=== PATIENT | female | born 1935 | race Caucasian/White ===

== ENCOUNTER 2017-01-04 08:26 | Inpatient (IN) | payer MEDICARE, MEDICAID ==
[~2017-01-04] VITALS: Ht 152.4 cm; Wt 61.5 kg
[2017-01-04 09:30] VITALS: Ht 152.4 cm; Wt 61.5 kg
[2017-01-04] MEDS ORDERED: FENTAnyl 50 MCG/ML VIAL ONE (09:32)
[2017-01-04] MEDS ORDERED: PROPOFOL 20 ML ONE (09:32)
[2017-01-04 09:46] VITALS: BP 150/85; PULSE 79; RESP 17
[2017-01-04] MEDS ORDERED: hydrALAzine 20 MG INJ ONE (09:47)
[2017-01-04] MEDS ORDERED: HTN MED PO (10:09)
[2017-01-04] MEDS ORDERED: ADVIL PO (10:09)
[2017-01-04] MEDS ORDERED: TRAMADOL PO (10:09)
[2017-01-04] MEDS ORDERED: DIABETES MED PO (10:09)
[2017-01-04] MEDS ORDERED: CHOLESTEROL PO (10:09)
[2017-01-04 10:31] LABS: BASOPHIL # 0.1 10^3/ul (0.0-0.1); EOSINOPHILS # 0.1 10^3/ul (0.0-0.5); HEMATOCRIT 34.8 % (37.0-47.0); HEMOGLOBIN 11.4 g/dl (12.0-16.0); LYMPHOCYTES # 1.7 10^3/ul (0.8-2.9); LYMPHOCYTES % 33.9 % (15.0-51.0); MEAN CORPUSCULAR HEMOGLOBIN 29.2 pg (29.0-33.0); MEAN CORPUSCULAR HGB CONC 32.8 g/dl (32.0-37.0); MEAN CORPUSCULAR VOLUME 89.2 fl (82.0-101.0); MEAN PLATELET VOLUME 10.7 fl (7.4-10.4); MONOCYTE # 0.4 10^3/ul (0.3-0.9); MONOCYTES % 7.1 % (0.0-11.0); NEUTROPHILS % 55.6 % (39.0-77.0); PLATELET COUNT 234 10^3/UL (140-415); RED CELL DISTRIBUTION WIDTH 13.6 % (11.5-14.5); WHITE BLOOD COUNT 5.1 10^3/ul (4.8-10.8)
[2017-01-04 10:45] LABS: INR 0.95; PROTIME 12.7 Sec (12.2-14.2)
[2017-01-04 10:46] LABS: PARTIAL THROMBOPLASTIN TIME 33.7 Sec (25.0-35.0)
[2017-01-04 10:48] LABS: CALCIUM 9.5 mg/dl (8.4-10.2); CREATININE 0.59 mg/dl (0.44-1.00); POTASSIUM 3.9 mmol/L (3.5-5.1)
--- NOTE | 2017-01-04 11:07 | OPPN ---
Date/Time of Note Date/Time of Note DATE: 01/04/17 TIME: 09:44 Operative Report Preoperative Diagnosis Change in bowel habit Loss of appetite Weight loss Postoperative Diagnosis Gastric ulcers on the antrum Lurdes Hunt tear with bleeding Operation/Procedure Performed Esophagogastroduodenoscopy and biopsy Provider: SWATI LAGOS MD Anesthesia Type: MAC Estimated blood loss: 100 - 150 ml's Transfusion Required: no Specimens Biopsy gastric ulcer Grafts/Implants: none Complications Lurdes-Hunt tear and bleeding SWATI LAGOS MD Jan 04, 2017 11:03
[2017-01-04] MEDS ORDERED: DEXTROSE 5%-0.45% NACL 1,000 ML IV SCH (11:30)
[2017-01-04 11:33] VITALS: BP 176/80; PULSE 75; RESP 18
[2017-01-04 12:12] VITALS: PULSE 78; RESP 16
[2017-01-04 12:22] VITALS: BP 138/53
[2017-01-04] MEDS: PANTOPRAZOLE 40 MG INJ IV SCH ×2 (12:50→20:18)
[2017-01-04 14:34] LABS: HEMATOCRIT 31.3 % (37.0-47.0); HEMOGLOBIN 10.3 g/dl (12.0-16.0)
--- NOTE | 2017-01-04 15:22 | HP ---
Date/Time of Note Date/Time of Note DATE: 01/04/17 TIME: 15:10 Assessment/Plan VTE Prophylaxis VTE Prophylaxis Intervention: SCD's Lines/Catheters IV Catheter Type (from Nrs): Peripheral IV Assessment/Plan Assessment/Plan This is a 81-year-old female, who was electively admitted for EGD and colonoscopy for unintentional weight loss who also noted with bleeding post EGD and for colonoscopy was canceled and was admitted for observation. 1. Lurdes Hunt tear with bleeding. -NG tube to low intermittent suction. Postop management per GI team. -We will start patient on IV fluids and monitor H&H closely and transfuse as indicated. Currently H&H stable. 2. Gastric ulcers -On PPI therapy 3. Change in bowel pattern with Loss of appetite/unintentional weight loss.Family hx of Colon cancer -Follow up With EGD biopsy findings. Screening Colonoscopy was canceled secondary to #1. Follow-up with GI recs. 4. History of diabetes. Controlled and not on any treatment. -Obtain A1c and treat accordingly 5. Hypercholesteremia. -Needs to obtain home medication and will resume as indicated. Obtain fasting lipid panel 6. Hypertension. Currently blood pressure stable -Obtain home medications and will resume as indicated. 7.Normocytic anemia,likely chronic. HH stable. With #1, will closely monitor. Plan: Continue to monitor patient overnight. We will also obtain fasting lipid panel, A1c and TSH level. Further management per GI team. Approximately 60 minutes was spent on this history and physical. Patient was seen in collaboration with Dr. Wiggins. HPI/ROS Admit Date/Time Admit Date/Time Jan 04, 2017 at 11:17 Hx of Present Illness This is a 81-year-old female with a past medical history hypertension, arthritis , chronic back pain, type 2 diabetes, uterine fibroid removal, hyperlipidemia, who was electively admitted by GI service for elective endoscopy and colonoscopy with biopsy secondary to change in bowel habit with loss of appetite and unintentional weight loss. Patient had undergone EGD and biopsy on 01/04/2017 at [facility]. However, she was noted with bleeding postprocedure and a colonoscopy was not performed and patient was admitted for observation overnight. Currently she denies any chest pain, shortness of breath, loss of consciousness, dizziness, nausea, vomiting, abdominal pain, fever or chills. Patient has an NG tube draining minimal sanguinous drainage. Labs with hemoglobin 10.3, hematocrit 31.3. Otherwise unremarkable. Vital signs within acceptable range. ROS A 12 point system was assessed and is negative other than what is mentioned in the HPI PMH/Family/Social Past Medical History see HPI Past Surgical History see HPI Social History Normal alcohol use. Nicotine abuse, quit 2 weeks ago. Denies any illicit drug use. Smoking Status: Former smoker Exam/Review of Systems Vital Signs Vitals Vital Signs Date Time Temp Pulse Resp B/P Pulse Ox O2 Delivery O2 Flow Rate FiO2 01/04/17 14:44 Nasal Cannula 2.0 01/04/17 12:22 138/53 01/04/17 12:12 97.7 78 16 97 Exam Exam General: Well developed,adequately built, not in any acute distress . HEENT: Normocephalic, Atraumatic, No laceration or hematoma; Eyes: PEERL, Conjunctiva clear, Anicteric sclera Neck: Supple without any lymphadenopathy, nontender, no JVD, no carotid bruits, trachea midline, no thyromegaly Cardiac: S1, S2 auscultated, regular rhythm and rate, no mumurs or gallop Pulmonary: Normal respiratory effort. Chest clear to auscultation bilaterally, no adventitious breath sounds GI: NG-tube to low intermittent suction, draining blood. Abdomen normal to inspection. Soft, non tender, non- distended, no masses, no rebound tenderness or guarding. Bowel sounds active on all four quadrants Genitourinary: Deferred Extremities: No cyanosis, clubbing, or edema. Pulses [2+] bilaterally. Full ROM on all four extremities. No focal weakness appreciated. Neurologic: Alert to person, place, time, and situation. Affect appropriate, intact sensation. Skin: Clean,dry, and intact. No ecchymosis, no rashes, or lesions Labs Result Diagram: 01/04/17 1413 01/04/17 1020 Medications Medications Current Medications Pantoprazole (Protonix Iv) 40 mg Q12 IV Last administered on 01/04/17t 12:50; Admin Dose 40 MG; Start 01/04/17 at 11:30 STEPH FRANK NP Jan 04, 2017 15:22
[2017-01-04] MEDS ORDERED: ACETAMINOPHEN 650 MG SUPP PR PRN (15:30)
[2017-01-04] MEDS ORDERED: NACL 0.9% 3 ML SYG IV SCH (15:30)
[2017-01-04] MEDS ORDERED: hydrALAzine 20 MG INJ IV PRN (15:30)
[2017-01-04] MEDS: SOD CHLORIDE 0.9% 1,000 ML IV SCH (16:12)
[2017-01-04] MEDS: morphine 2 MG INJ IV PRN (16:31)
[2017-01-04] MEDS: ONDANSETRON 4 MG INJ IV PRN ×2 (16:31→22:38)
[2017-01-04] MEDS: INSULIN ASPART [NOVOLOG] 3 ML PEN SC SCH ×2 (17:41→20:28)
--- NOTE | 2017-01-04 19:11 | GILP ---
DATE OF PROCEDURE: 01/04/2017 PROCEDURE PERFORMED: Esophagogastroduodenoscopy and biopsy. SURGEON: Nnamdi Mcbride MD. PREOPERATIVE DIAGNOSIS: Loss of appetite, weight loss, and change in the bowel habits. POSTOPERATIVE DIAGNOSES: 1. Two small gastric ulcers in the antrum, and biopsies were taken for histopathology. 2. Bleeding from Lurdes-Hunt tear. INDICATION: Debbie Wood is an 81-year-old female patient who had change in the bowel habit, loss of appetite and weight loss. Patient was scheduled for endoscopy and colonoscopy for further evaluation. The procedures and possible complications were well explained to the patient and the family, and consent was obtained. DESCRIPTION OF PROCEDURE: Under the influence of anesthesia, the gastroscope was carefully introduced into the esophagus. Under direct vision, it was advanced into the stomach, into the pylorus, into the duodenal bulb, and descending duodenum. FINDINGS: Esophagus: The patient had hiatal hernia and gastroesophageal reflux disease. Stomach: She had gastritis. She also had gastric ulcers in the antrum. Biopsies were taken for histopathology. Duodenum was normal. During the examination, the patient was noted to have bleeding from esophagogastric junction, probably secondary to Lurdes- Hunt tear. Because of the blood clots, complete examination could not be done. The bleeding stopped, and there was no active bleeding. Nasogastric tube was inserted, and it was connected to continuous suction. Patient was admitted to the hospital for observation. Blood was drawn for CBC, BMP and typing and cross matching. IMPRESSION: 1. Gastric ulcers and biopsies were taken for histopathology. 2. Bleeding from Lurdes-Hunt tear. 3. The patient was admitted to the hospital for observation. PLAN: 1. IV fluids. 2. Pantoprazole IV. 3. Watch hemoglobin and hematocrit. Dictated By: MD CLAUDIA Hall/yaritza/rea /Document#: [id number] CC: Nnamdi Mcbride MD;*[facility]*
[2017-01-04 19:45] VITALS: BP 124/60; RESP 19
[2017-01-05 00:22] VITALS: BP 123/56; RESP 20
[2017-01-05] MEDS: morphine 2 MG INJ IV PRN (00:25)
[2017-01-05] MEDS: ACCU-CHEK XX SCH ×2 (01:49)
[2017-01-05] MEDS: ONDANSETRON 4 MG INJ IV PRN ×2 (04:43→16:28)
[2017-01-05] MEDS: SOD CHLORIDE 0.9% 1,000 ML IV SCH ×2 (04:44→16:59)
[2017-01-05 05:33] LABS: ALBUMIN 2.6 g/dl (3.3-4.9); ALBUMIN/GLOBULIN RATIO 1.08; BILIRUBIN,INDIRECT 0.2 mg/dl (0-1.1); BILIRUBIN,TOTAL 0.2 mg/dl (0.2-1.3); CALCIUM 8.4 mg/dl (8.4-10.2); CHOL/HDL RATIO 3.6 RATIO; CREATININE 0.83 mg/dl (0.44-1.00); PHOSPHORUS 4.1 mg/dl (2.5-4.9); POTASSIUM 4.3 mmol/L (3.5-5.1)
--- NOTE | 2017-01-05 05:39 | CONS ---
DATE OF ADMISSION: DATE OF CONSULTATION: 12/30/2016 I think you very much for this kind referral. HISTORY OF PRESENT ILLNESS: Ms. Debbie Bautista is an 81-year-old female patient who has been referred to me for further evaluation of change in the bowel habit with constipation. Patient also complains of loss of appetite and weight loss. There is no past medical history of colon neoplasm. She never had screening colonoscopy. Patient denies any upper abdominal pain. No history of peptic ulcer disease. She has been taking Advil and other pain medications for arthritis. No history of gallstones or liver disease. She is hypertensive. She has diabetes. No heart disease or lung problem. No kidney disease. She has got hyperlipidemia. SOCIAL HISTORY: Nonsmoker. No alcohol abuse. FAMILY HISTORY: Patient's mother had stomach cancer. ALLERGIES: NO HISTORY OF DRUG ALLERGIES. MEDICATION: She takes medicine for high blood pressure, diabetes, cholesterol and arthritis. She does not remember the names. PHYSICAL EXAMINATION: VITAL SIGNS: She is 5 feet tall, and she weighs 135 pounds. BMI 26. HEART: Normal heart sounds. LUNGS: Clear. ABDOMEN: Soft. No masses. Normal bowel sounds. NEUROLOGIC: Normal neurological exam. IMPRESSION: 1. Change in the bowel habits. 2. Constipation. 3. Patient never had screening colonoscopy. 4. Loss of appetite and weight loss. 5. Patient is on Advil and multiple pain medications for arthritis. 6. Family history of gastric cancer, 7.Hypertension D.M. Hyperlipidemia PLAN: Colonoscopy and upper endoscopy for further evaluation. Because of the patient's age, she will need monitored anesthesia care. The procedures and possible complications were well explained to the patient and the family. They understand and consent to the procedures. Her BMI is 26. Blood pressure 128/78. She will be followed by the Primary MD for the BMI and blood pressure management. I thank you once again. Patient Name: DEBBIE BAUTISTA Dictated By: MD CLAUDIA Hall/yaritza/rea /Document#: [id number] CC: Nnamdi Mcbride MD;*End[facility]* MTDD
[2017-01-05 05:46] LABS: ABNORMAL IP MESSAGE 1; BASOPHILS % 0.2 % (0.0-2.0); HEMATOCRIT 21.1 % (37.0-47.0); LYMPHOCYTES # 2.1 10^3/ul (0.8-2.9); LYMPHOCYTES % 26.4 % (15.0-51.0); MEAN CORPUSCULAR HEMOGLOBIN 30.1 pg (29.0-33.0); MEAN CORPUSCULAR HGB CONC 32.7 g/dl (32.0-37.0); MEAN CORPUSCULAR VOLUME 92.1 fl (82.0-101.0); MEAN PLATELET VOLUME 11.5 fl (7.4-10.4); MONOCYTE # 0.6 10^3/ul (0.3-0.9); MONOCYTES % 7.2 % (0.0-11.0); NEUTROPHILS % 65.8 % (39.0-77.0); PLATELET COUNT 239 10^3/UL (140-415); RED BLOOD COUNT 2.29 10^6/ul (4.20-5.40); RED CELL DISTRIBUTION WIDTH 13.9 % (11.5-14.5); WHITE BLOOD COUNT 8.1 10^3/ul (4.8-10.8)
[2017-01-05 06:00] LABS: HEMOGLOBIN 6.9 g/dl (12.0-16.0); POSITIVE DIFF @See below
[2017-01-05 06:03] LABS: THYROID STIMULATING HORMONE 0.405 MIU/L (0.465-4.680)
[2017-01-05 06:11] VITALS: BP 119/57; PULSE 98; RESP 18
[2017-01-05] MEDS ORDERED: ACETAMINOPHEN 325 MG TAB ONE (07:56)
[2017-01-05] MEDS: ACETAMINOPHEN 325 MG TAB PO PRN (07:59)
[2017-01-05 08:04] VITALS: BP 123/58; RESP 20
[2017-01-05] MEDS: PANTOPRAZOLE 40 MG INJ IV SCH ×2 (08:27→21:43)
[2017-01-05] MEDS: INSULIN ASPART [NOVOLOG] 3 ML PEN SC SCH ×4 (08:29→21:00)
--- NOTE | 2017-01-05 12:21 | PN ---
Date/Time of Note Date/Time of Note DATE: 01/05/17 TIME: 12:17 Assessment/Plan VTE Prophylaxis VTE Prophylaxis Intervention: SCD's Lines/Catheters IV [facility]from [facility]): Peripheral IV Assessment/Plan Chief Complaint/Hosp Course This is a 81-year-old female, who was electively admitted for EGD and colonoscopy for unintentional weight loss who also noted with bleeding post EGD and for colonoscopy was canceled and was admitted for observation. 1. Acute GI bleed with Lurdes Hunt tear. Today HH dropped to 6.9/21.1 -2 units PRBC has been odrered by GI team -Continue IV fluids and monitor H&H closely and transfuse as indicated. -Diet per surgery 2. Gastric ulcers -On PPI therapy 3. Loss of appetite/unintentional weight loss. -F/u EGD biopsy findings. Screening colonoscopy was canceled secondary to bleed. Follow-up with GI recs. 4. History of diabetes. Controlled and not on any treatment.A1C stable. -Monitor 5. Hypercholesteremia.Lipid panel with subnormal lipid levels. -No need for statin therapy at this time. 6. Hypertension. Currently blood pressure stable -Monitor. 7.Acute blood loss anemia on chronic anemia requiring transfusion 2/2 #1. -Monitor HH closely Plan: Continue to monitor patient . Further management per GI team. Obtain T4/ T3 level. Patient was seen in collaboration with Dr. Wiggins. Problems: Subjective 24 Hr Interval Summary Free Text/Dictation Ngtube out. Patient had bloody stool today. on clear diet. Exam/Review of Systems Vital Signs Vitals Vital Signs Date Time Temp Pulse Resp B/P Pulse Ox O2 Delivery O2 Flow Rate FiO2 01/05/17 08:04 100.6 112 20 123/58 95 01/05/17 06:11 Room Air 01/04/17 14:44 2.0 Intake and Output 01/04/17 01/04/17 01/05/17 15:00 23:00 07:00 Intake Total 520 ml 1220 ml Output Total 300 ml 50 ml Balance 220 ml 1170 ml Exam General: Well developed,adequately built, not in any acute distress . HEENT: Normocephalic, Atraumatic, No laceration or hematoma; Eyes: PEERL, Conjunctiva clear, Anicteric sclera Neck: Supple without any lymphadenopathy, nontender, no JVD, no carotid bruits, trachea midline, no thyromegaly Cardiac: S1, S2 auscultated, regular rhythm and rate, no mumurs or gallop Pulmonary: Normal respiratory effort. Chest clear to auscultation bilaterally, no adventitious breath sounds GI: Abdomen normal to inspection. Soft, non tender, non- distended, no masses, no rebound tenderness or guarding. Bowel sounds active on all four quadrants Genitourinary: Deferred Extremities: No cyanosis, clubbing, or edema. Pulses [2+] bilaterally. Full ROM on all four extremities. No focal weakness appreciated. Neurologic: Alert to person, place, time, and situation. Affect appropriate, intact sensation. Skin: Clean,dry, and intact. No ecchymosis, no rashes, or lesions Results Result Diagram: 01/05/17 0501 01/05/17 0501 Results 24 hrs Laboratory Tests Test 01/04/17 14:13 01/04/17 17:30 01/04/17 20:26 01/05/17 05:01 Hemoglobin 10.3 L 6.9 #*L Hematocrit 31.3 L 21.1 #L Bedside Glucose 166 168 White Blood Count 8.1 # Red Blood Count 2.29 #L Mean Corpuscular Volume 92.1 Mean Corpuscular Hemoglobin 30.1 Mean Corpuscular Hemoglobin Concent 32.7 Red Cell Distribution Width 13.9 Platelet Count 239 Mean Platelet Volume 11.5 H Neutrophils % 65.8 Lymphocytes % 26.4 Monocytes % 7.2 Eosinophils % 0.0 Basophils % 0.2 Nucleated Red Blood Cells % 0.0 Neutrophils # (Manual) 5.3 Lymphocytes # 2.1 Monocytes # 0.6 Eosinophils # 0.0 Basophils # 0.0 Nucleated Red Blood Cells # 0.0 Sodium Level 140 Potassium Level 4.3 Chloride Level 108 Carbon Dioxide Level 25 Anion Gap 11 Blood Urea Nitrogen 39 #H Creatinine 0.83 Glucose Level 181 Hemoglobin A1c 5.7 Calcium Level 8.4 Phosphorus Level 4.1 Total Bilirubin 0.2 Direct Bilirubin 0.00 Indirect Bilirubin 0.2 Aspartate Amino Transf (AST/SGOT) 15 Alanine Aminotransferase (ALT/SGPT) 20 Alkaline Phosphatase 76 Total Protein 5.0 L Albumin 2.6 L Globulin 2.40 Albumin/Globulin Ratio 1.08 Triglycerides Level 134 Cholesterol Level 81 L LDL Cholesterol, Calculated 32 HDL Cholesterol 22 L Cholesterol/HDL Ratio 3.6 Thyroid Stimulating Hormone (TSH) 0.405 L Test 01/05/17 08:17 Bedside Glucose 154 Medications Medications Current Medications Pantoprazole 40 mg 40 mg Q12 IV Last administered on 01/05/17 08:27; Admin Dose 40 MG; Start 01/04/17 at 11:30 Sodium Chloride (NS) 1,000 ml @ 75 mls/hr [id number] IV Last administered on 01/05 04:44; Admin Dose 75 MLS/HR; Start 01/04/17 at 15:30 Acetaminophen (Tylenol Supp) 650 mg Q6H PRN [place] PAIN LEVEL 1-3 OR FEVER; Start 01/04/17 at 15:30 Morphine Sulfate (morphine) 2 mg Q4H PRN IV SEVERE PAIN LEVEL 7-10 Last administered on 01/05/17 00:25; Admin Dose 2 MG; Start 01/04/17 at 15:30 Diagnostic Test (Pha) (Accu-Chek) 1 ea 02 XX ; Start 01/05/17 at 02:00 Hydralazine HCl (Apresoline) 10 mg Q6H PRN IV SBP>160; Start 01/04/17 at 15:30 Diagnostic Test (Pha) (Accu-Chek) 1 ea 02 XX ; Start 01/05/17 at 02:00 Ondansetron HCl (Zofran Inj) 4 mg Q4H PRN IV NAUSEA AND/OR VOMITING Last administered on 01/05/17 04:43; Admin Dose 4 MG; Start 01/05/17 at 02:30 Acetaminophen (Tylenol Tab) 650 mg Q4H PRN PO PAIN AND OR ELEVATED TEMP Last administered on 01/05/17 07:59; Admin Dose 650 MG; Start 01/05/17 at 07:57 STEPH FRANK NP Jan 05, 2017 12:21
--- NOTE | 2017-01-05 13:51 | PN ---
DATE: 01/04/2017 SUBJECTIVE DATA: Ms. Debbie Wood upper endoscopy and she started having upper gastrointestinal tract bleeding secondary to Lurdes Hunt tear. The patient was hospitalized for observation. The patient was given IV fluids and she was getting pantoprazole IV. The patient dropped her hematocrit to 6.9. She does not have any abdominal pain. She has nausea. She is not vomiting blood. She had melena. The patient also had gastric ulcers on upper endoscopy. PHYSICAL EXAMINATION: VITAL SIGNS: Stable. ABDOMEN: Soft, not distended. Normal bowel sounds. LABORATORY AND DIAGNOSTIC DATA: Hemoglobin 6.9, hematocrit 21.1. PLAN: Continue IV Protonix. Transfuse 2 units of packed cells. Watch vital signs, hemoglobin and hematocrit. If the patient continues to bleed, will consider repeat endoscopy for further evaluation and possible electrocoagulation or clipping to stop the bleeding. Dictated By: MD CLAUDIA Hall/yaritza/erika /Document#: [id number]
[2017-01-05 16:45] LABS: HEMATOCRIT 29.1 % (37.0-47.0); HEMOGLOBIN 9.6 g/dl (12.0-16.0)
[2017-01-05] MEDS ORDERED: GLUCAGON 1 MG INJ IM PRN (18:00)
[2017-01-05] MEDS ORDERED: DEXTROSE 50% 50 ML SYRINGE IV PRN ×2 (18:00)
[2017-01-05] MEDS ORDERED: GLUCOSE GEL 15 GRAM TUBE BUCCAL PRN (18:00)
[2017-01-05] MEDS ORDERED: GLUCOSE GEL 15 GRAM TUBE PO PRN ×2 (18:00)
[2017-01-05 19:30] VITALS: BP 127/61; RESP 18
[2017-01-05 20:33] LABS: HEMATOCRIT 29.8 % (37.0-47.0)
[2017-01-06 02:00] VITALS: BP 120/72; RESP 20
[2017-01-06] MEDS: ACCU-CHEK XX SCH ×2 (02:00)
[2017-01-06] MEDS: ACETAMINOPHEN 325 MG TAB PO PRN (04:50)
[2017-01-06] MEDS: SOD CHLORIDE 0.9% 1,000 ML IV SCH ×2 (04:56→20:50)
[2017-01-06 05:15] LABS: BASOPHILS % 0.6 % (0.0-2.0); EOSINOPHILS # 0.1 10^3/ul (0.0-0.5); EOSINOPHILS % 0.7 % (0.0-7.0); HEMATOCRIT 27.9 % (37.0-47.0); HEMOGLOBIN 9.1 g/dl (12.0-16.0); LYMPHOCYTES % 29.3 % (15.0-51.0); MEAN CORPUSCULAR HEMOGLOBIN 28.6 pg (29.0-33.0); MEAN CORPUSCULAR HGB CONC 32.6 g/dl (32.0-37.0); MEAN CORPUSCULAR VOLUME 87.7 fl (82.0-101.0); MEAN PLATELET VOLUME 11.2 fl (7.4-10.4); MONOCYTE # 0.5 10^3/ul (0.3-0.9); MONOCYTES % 7.1 % (0.0-11.0); NEUTROPHILS % 61.7 % (39.0-77.0); PLATELET COUNT 175 10^3/UL (140-415); RED BLOOD COUNT 3.18 10^6/ul (4.20-5.40); WHITE BLOOD COUNT 6.8 10^3/ul (4.8-10.8)
[2017-01-06 05:36] LABS: CALCIUM 8.7 mg/dl (8.4-10.2); CREATININE 0.63 mg/dl (0.44-1.00); POTASSIUM 3.6 mmol/L (3.5-5.1)
[2017-01-06 05:49] LABS: FREE T3 1.98 pg/ml (2.77-5.27)
[2017-01-06 06:02] LABS: TRIIODOTHYRONINE 0.58 ng/ml (0.97-1.69)
[2017-01-06 08:27] VITALS: BP 155/74; RESP 16
[2017-01-06] MEDS: INSULIN ASPART [NOVOLOG] 3 ML PEN SC SCH ×4 (08:45→20:43)
[2017-01-06] MEDS: PANTOPRAZOLE 40 MG INJ IV SCH ×2 (09:36→20:42)
--- NOTE | 2017-01-06 11:51 | PN ---
Date/Time of Note Date/Time of Note DATE: 01/06/17 TIME: 11:43 Assessment/Plan VTE Prophylaxis VTE Prophylaxis Intervention: SCD's Lines/Catheters IV [facility] Type (from [facility]): Peripheral IV Urinary Cath still in place: No Assessment/Plan Chief Complaint/Hosp Course This is a 81-year-old female, who was electively admitted for EGD and colonoscopy for unintentional weight loss who also noted with bleeding post EGD and for colonoscopy was canceled and was admitted for observation. 1. Acute GI bleed with Lurdes Hunt tear.HH stable today.Stable -Status post 2 units PRBC -Continue IV fluids and monitor H&H closely and transfuse as indicated. -Diet per surgery 2. Gastric ulcers with H-Pylori infection -Start clarithromycin-based triple therapyX 14DAYS-Patient already on PPI. -Defer GI for further recs. 3. Loss of appetite/unintentional weight loss. -EGD Pathology with no evidence of intestinal metaplasia, dysplasia or malignancy. -Screening colonoscopy was canceled secondary to bleed. Follow-up with GI recs. 4. History of diabetes. Controlled and not on any treatment.A1C stable. -Monitor 5. Hypercholesteremia.Lipid panel with subnormal lipid levels. -No need for statin therapy at this time. 6. Hypertension. Currently blood pressure stable -Monitor. 7.Abnormal thyroid function.Asymptomatic. Recommend outpatient repeat labs in 2 weeks 8.Acute blood loss anemia on chronic anemia requiring transfusion 2/2 #1. HH stable now. -Obtain iron panel and treat accordingly. Plan: Overall improving well. No further bleed. Continue to monitor patient . DC planning when cleared by GI. Patient was seen in collaboration with Dr. Wiggins. Problems: Subjective 24 Hr Interval Summary Free Text/Dictation No further bleeding. Started on diet. Exam/Review of Systems Vital Signs Vitals Vital Signs Date Time Temp Pulse Resp B/P Pulse Ox O2 Delivery O2 Flow Rate FiO2 01/06/17 08:27 97.3 97 16 155/74 94 01/05/17 06:11 Room Air 01/04/17 14:44 2.0 Intake and Output 01/05/17 01/05/17 01/06/17 15:00 23:00 07:00 Intake Total 1690 ml 950 ml Balance 1690 ml 950 ml Exam General: Well developed,adequately built, not in any acute distress . HEENT: Normocephalic, Atraumatic, No laceration or hematoma; Eyes: PEERL, Conjunctiva clear, Anicteric sclera Neck: Supple without any lymphadenopathy, nontender, no JVD, no carotid bruits, trachea midline, no thyromegaly Cardiac: S1, S2 auscultated, regular rhythm and rate, no mumurs or gallop Pulmonary: Normal respiratory effort. Chest clear to auscultation bilaterally, no adventitious breath sounds GI: Abdomen normal to inspection. Soft, non tender, non- distended, no masses, no rebound tenderness or guarding. Bowel sounds active on all four quadrants Genitourinary: Deferred Extremities: No cyanosis, clubbing, or edema. Pulses [2+] bilaterally. Full ROM on all four extremities. No focal weakness appreciated. Neurologic: Alert to person, place, time, and situation. Affect appropriate, intact sensation. Skin: Clean,dry, and intact. No ecchymosis, no rashes, or lesions Results Result Diagram: 01/06/17 0437 01/06/17 0437 Results 24 hrs Laboratory Tests Test 01/05/17 12:37 01/05/17 16:13 01/05/17 16:50 01/05/17 20:19 Bedside Glucose 145 171 Hemoglobin 9.6 #L 10.0 L Hematocrit 29.1 #L 29.8 L Test 01/05/17 21:45 01/06/17 04:37 01/06/17 05:32 01/06/17 08:42 Bedside Glucose 124 123 White Blood Count 6.8 Red Blood Count 3.18 #L Hemoglobin 9.1 L Hematocrit 27.9 L Mean Corpuscular Volume 87.7 Mean Corpuscular Hemoglobin 28.6 L Mean Corpuscular Hemoglobin Concent 32.6 Red Cell Distribution Width 16.0 H Platelet Count 175 # Mean Platelet Volume 11.2 H Neutrophils % 61.7 Lymphocytes % 29.3 Monocytes % 7.1 Eosinophils % 0.7 Basophils % 0.6 Nucleated Red Blood Cells % 0.0 Neutrophils # (Manual) 4.2 Lymphocytes # 2.0 Monocytes # 0.5 Eosinophils # 0.1 Basophils # 0.0 Nucleated Red Blood Cells # 0.0 Sodium Level 145 H Potassium Level 3.6 Chloride Level 114 H Carbon Dioxide Level 29 Anion Gap 6 L Blood Urea Nitrogen 34 H Creatinine 0.63 Glucose Level 115 # Calcium Level 8.7 Free Thyroxine 1.09 Free Triiodothyronine (T3) pg/mL 1.98 L Total Triiodothyronine 0.58 L Lab Scanned Report BLOOD TRANSFUSION Medications Medications Current Medications Pantoprazole 40 mg 40 mg Q12 IV Last administered on 01/06/17 09:36; Admin Dose 40 MG; Start 01/04/17 at 11:30 Sodium Chloride (NS) 1,000 ml @ 75 mls/hr [id number] IV Last administered on 01/06 04:56; Admin Dose 75 MLS/HR; Start 01/04/17 at 15:30 Acetaminophen (Tylenol Supp) 650 mg Q6H PRN [place] PAIN LEVEL 1-3 OR FEVER; Start 01/04/17 at 15:30 Morphine Sulfate (morphine) 2 mg Q4H PRN IV SEVERE PAIN LEVEL 7-10 Last administered on 01/05/17 00:25; Admin Dose 2 MG; Start 01/04/17 at 15:30 Diagnostic Test (Pha) (Accu-Chek) 1 ea 02 XX ; Start 01/05/17 at 02:00 Hydralazine HCl (Apresoline) 10 mg Q6H PRN IV SBP>160; Start 01/04/17 at 15:30 Diagnostic Test (Pha) (Accu-Chek) 1 ea 02 XX ; Start 01/05/17 at 02:00 Ondansetron HCl (Zofran Inj) 4 mg Q4H PRN IV NAUSEA AND/OR VOMITING Last administered on 01/05/17 16:28; Admin Dose 4 MG; Start 01/05/17 at 02:30 Acetaminophen (Tylenol Tab) 650 mg Q4H PRN PO PAIN AND OR ELEVATED TEMP Last administered on 01/06/17 04:50; Admin Dose 650 MG; Start 01/05/17 at 07:57 Miscellaneous Information 1 ea NOTE XX ; Start 01/05/17 at 18:00 Glucose (Glutose) 15 gm Q15M PRN PO DECREASED GLUCOSE; Start 01/05/17 at 18:00 Glucose (Glutose) 22.5 gm Q15M PRN PO DECREASED GLUCOSE; Start 01/05/17 at 18: 00 Dextrose (D50w Syringe) 25 ml Q15M PRN IV DECREASED GLUCOSE; Start 01/05/17 at 18:00 Dextrose (D50w Syringe) 50 ml Q15M PRN IV DECREASED GLUCOSE; Start 01/05/17 at 18:00 Glucagon (Glucagen) 1 mg Q15M PRN IM DECREASED GLUCOSE; Start 01/05/17 at 18:00 Glucose (Glutose) 15 gm Q15M PRN BUCCAL DECREASED GLUCOSE; Start 01/05/17 at 18 :00 STEPH FRANK NP Jan 06, 2017 11:51
[2017-01-06] MEDS: HYDROCODONE/APAP (5/325) TAB PO PRN ×2 (13:16→23:36)
--- NOTE | 2017-01-06 14:43 | PN ---
DATE: 01/06/2017 SUBJECTIVE DATA: The patient is feeling better today. No abdominal pain. No nausea or vomiting. No melena. OBJECTIVE DATA: ABDOMEN: Soft, not distended. No masses. No focal tenderness. Normal bowel sounds. LABORATORY AND DIAGNOSTIC DATA: Hemoglobin has dropped a little bit because of hydration. Patient has got elevated BUN. PLAN: Advance diet to soft diet. Continue Protonix. Watch hemoglobin and hematocrit. Patient will be discharged home tomorrow if the vital signs and hematocrit are stable and if the patient is asymptomatic. Dictated By: MD CLAUDIA Hall/yaritza/neptali /Document#: [id number]
[2017-01-06 15:48] VITALS: BP 138/76; RESP 18
[2017-01-06] MEDS ORDERED: PANTOPRAZOLE (EC) 40 MG TAB PO SCH (18:00)
[2017-01-06 19:25] LABS: HEMATOCRIT 26.5 % (37.0-47.0); HEMOGLOBIN 8.9 g/dl (12.0-16.0)
[2017-01-06 20:07] VITALS: BP 143/64; RESP 19
[2017-01-06] MEDS: AMOXICILLIN 500 MG CAP PO SCH (20:42)
[2017-01-06 20:43] VITALS: BP 159/70; RESP 20
[2017-01-06] MEDS: CLARITHROMYCIN 500 MG TAB PO SCH (20:43)
[2017-01-07] MEDS: ACCU-CHEK XX SCH ×2 (02:00)
[2017-01-07 05:25] LABS: HEMATOCRIT 24.7 % (37.0-47.0); HEMOGLOBIN 8.1 g/dl (12.0-16.0)
[2017-01-07 05:50] LABS: IRON 36 ug/dl (35-150)
[2017-01-07 06:00] LABS: TOTAL IRON BINDING CAPACITY 246 ug/dl (241-421)
[2017-01-07] MEDS: HYDROCODONE/APAP (5/325) TAB PO PRN (07:40)
[2017-01-07] MEDS: INSULIN ASPART [NOVOLOG] 3 ML PEN SC SCH ×2 (07:50→13:00)
[2017-01-07 08:15] VITALS: BP 175/77; RESP 18
[2017-01-07] MEDS: PANTOPRAZOLE 40 MG INJ IV SCH (08:57)
[2017-01-07] MEDS: AMOXICILLIN 500 MG CAP PO SCH (08:57)
[2017-01-07] MEDS: CLARITHROMYCIN 500 MG TAB PO SCH (08:57)
[2017-01-07] MEDS: SOD CHLORIDE 0.9% 1,000 ML IV SCH (10:10)
--- NOTE | 2017-01-07 10:49 | PDOCDIS ---
Discharge Instructions CONDITION Patient Condition: Stable HOME CARE INSTRUCTIONS: Diet Instructions: Regular FOLLOW UP/APPOINTMENTS Follow-up Plan 1.Follow up with primary care physician in 1 week If you don't have one please let someone know, we can give you resources that may help you pick one. You may also call your insurance company to assign one to you. Review your medication list with your nurse before leaving and if you need new prescriptions please let your nurse know. I may have made changes to your home medications or given you new prescriptions, please let your primary doctor know as well. Stay compliant with your medications and report any side effects to your PCP or pharmacist. Return to the ER if you have any concerns and cannot reach your doctors or call your insurance company, they usually have a nurse that can help you. 2. Call 911 or go to the nearest emergency room if experiencing loss of consciousness, dizziness, chest pain, shortness of breath, vomiting/abdominal pain, speech difficulties, motor weakness or any unusual symptoms. OTHER ORDERS: Other Orders: Follow-up with in clinic in 2weeks STEPH FRANK NP Jan 07, 2017 10:49
[2017-01-07] MEDS ORDERED: CLAR500T39 PO (10:52)
[2017-01-07] MEDS ORDERED: PANT40TA3 PO (10:52)
[2017-01-07] MEDS ORDERED: AMO500 PO (10:52)
--- NOTE | 2017-01-07 15:23 | DS ---
Date/Time of Note Date/Time of Note DATE: 01/07/17 TIME: 15:18 Discharge Summary Admission/Discharge Info Admit Date/Time Jan 05, 2017 at 12:21 Discharge Date/Time Discharge Diagnosis 1. Acute GI bleed with Lurdes Hunt tear. Able 2. Gastric ulcers with H-Pylori infection 3. Loss of appetite/unintentional weight loss.EGD Pathology with no evidence of intestinal metaplasia, dysplasia or malignancy. Recommend outpatient screening colonoscopy. 4. History of diabetes. 5. Hypercholesteremia. 6. Hypertension. 7.Abnormal thyroid function.Asymptomatic.Needs outpt f/u 8.Acute blood loss anemia on chronic anemia requiring transfusion 05/28 # 1.Resolved. Patient Condition: Stable Consults ,GI Procedures 01/04/2017. Esophagogastroduodenoscopy and biopsy. 1. Two small gastric ulcers in the antrum, and biopsies were taken for histopathology. 2. Bleeding from Lurdes-Hunt tear. Hospital Course TT is a 81-year-old female with a past medical history of type 2 diabetes, hypercholesteremia, hypertension, family history of gastric ulcers, who was electively brought to [facility] by GI service for screening EGD and colonoscopy secondary to loss of appetite and unintentional weight loss. Apparently, patient was found with Acute GI bleed with Lurdes Hunt tear after EGD and therefore colonoscopy was canceled and patient was admitted for further evaluation. H&H was monitored closely. Patient continued to have bleeding from NG tube. She was noted with a hemoglobin of 6.9, hematocrit 21.1. Patient was transfused with 2 units packed red blood cells. Her hemoglobin remained stable thereafter. There was no further bleeding from NG tube. NG tube was then discontinued and patient was started on a clear diet and was advanced. Patient is closely monitored by GI team. EGD pathology was positive for H pylori and she was started on clarithromycin-based triple therapy. There was no malignancy. He was also continued on Protonix for underlying gastric ulcers. At this time, H&H remained stable. Patient is medically stable for discharge from GI standpoint with outpatient follow-up. Disposition: Patient will be discharged home today. She was instructed to follow-up with gastroenterology service in 2 weeks. Patient needs screening colonoscopy. She was also recommended to follow-up with primary care physician and to have thyroid function tests repeated in 2-4 weeks. Patient is given prescription for H pylori regimen antibiotics. Patient and family verbalized discharge instructions. Approximately 60 [facility] medical discharge of this patient. Patient is seen in collaboration with Dr. Wiggins. Home Meds Active Scripts Pantoprazole* (Protonix*) 40 Mg Tablet.dr, 40 MG PO BID for 40 Days, #80 TAB Prov:FRANK,STEPH V. [employer]ISTICAL METHODS TEACHER 01/07/17 Clarithromycin* (Biaxin*) 500 Mg Tablet, 500 MG PO BID for 13 Days, #26 TAB Prov:FRANK,STEPH V. STATISTICAL METHODS TEACHER 01/07/17 Amoxicillin* (Amoxicillin*) 500 Mg Cap, 500 MG PO BID for 13 Days, #26 CAP Prov:FRANK,STEPH V. STATISTICAL METHODS TEACHER 01/07/17 Reported Medications [Diabetes Med] No Conflict Check, PO DAILY 01/04/17 [Htn Med] No Conflict Check, PO DAILY 01/04/17 [Tramadol] No Conflict Check, PO DAILY for PAIN AND/OR INFLAMMATION 01/04/17 [Cholesterol] No Conflict Check, PO DAILY 01/04/17 Discontinued Reported Medications [Advil] No Conflict Check, PO DAILY Y for PAIN AND/OR INFLAMMATION 01/04/17 Follow-up Plan 1.Follow up with primary care physician in 1 week If you don't have one please let someone know, we can give you resources that may help you pick one. You may also call your insurance company to assign one to you. Review your medication list with your nurse before leaving and if you need new prescriptions please let your nurse know. I may have made changes to your home medications or given you new prescriptions, please let your primary doctor know as well. Stay compliant with your medications and report any side effects to your PCP or pharmacist. Return to the ER if you have any concerns and cannot reach your doctors or call your insurance company, they usually have a nurse that can help you. 2. Call 911 or go to the nearest emergency room if experiencing loss of consciousness, dizziness, chest pain, shortness of breath, vomiting/abdominal pain, speech difficulties, motor weakness or any unusual symptoms. OTHER ORDERS: Other Orders: Follow-up with in clinic in 2weeks Primary Care Provider Godfrey Cast MD Pending Labs Laboratory Tests Test 01/06/17 17:45 01/06/17 18:22 01/06/17 20:41 01/07/17 04:34 Bedside Glucose 105mg/dL (70-220) 122mg/dL (70-220) Hemoglobin 8.9g/dl (12.0-16.0) 8.1g/dl (12.0-16.0) Hematocrit 26.5% (37.0-47.0) 24.7% (37.0-47.0) Iron Level 36ug/dl (35-150) Total Iron Binding Capacity 246ug/dl (241-421) Percent Iron Saturation 15% SAT (22-52) Test 01/07/17 08:43 01/07/17 12:58 Bedside Glucose 124mg/dL (70-220) 106mg/dL (70-220) STEPH FRANK V. [employer]ICAL METHODS TEACHER Jan 07, 2017 15:23
[2017-01-07] MEDS ORDERED: PANTOPRAZOLE (EC) 40 MG TAB PO SCH (18:00)
== END 2017-01-07 15:40 | disposition home or self-care (01) | DRG 369 ==
LOC: GIL 08:26 → MS1 11:17 → GIL 12:02 → OBSVTOIN 01-05 12:21
PROVIDERS: ADMIT Internal Medicine; ATTEND Internal Medicine
PROC: 0DB68ZX Excision of Stomach, Via Natural or Artificial Opening Endoscopic, Diagnostic (ICD-10-PCS; 2017-01-04)
PROC: 30233N1 Transfusion of Nonautologous Red Blood Cells into Peripheral Vein, Percutaneous Approach (ICD-10-PCS; principal; 2017-01-05)
DX: K22.6 Gastro-esophageal laceration-hemorrhage syndrome (principal); D62 Acute posthemorrhagic anemia; E11.9 Type 2 diabetes mellitus without complications; K25.9 Gastric ulcer, unspecified as acute or chronic, without hemorrhage or perforation; K92.1 Melena; I10 Essential (primary) hypertension; B96.81 Helicobacter pylori [H. pylori] as the cause of diseases classified elsewhere; R19.4 Change in bowel habit; R63.4 Abnormal weight loss; K44.9 Diaphragmatic hernia without obstruction or gangrene; K21.9 Gastro-esophageal reflux disease without esophagitis; Z79.4 Long term (current) use of insulin; K59.00 Constipation, unspecified; M19.90 Unspecified osteoarthritis, unspecified site; E78.5 Hyperlipidemia, unspecified; R94.6 Abnormal results of thyroid function studies; Z68.26 Body mass index [BMI] 26.0-26.9, adult
CPT/HCPCS: 36430; 80048; 80053; 80061; 82962; 83036; 83540; 84100; 84439; 84443; 84480; 84481; 85014; 85018; 85025; 85610; 85730; 86850; 86900; 86901; 86920; 88305; 88312; C9113; G0378; J0360; J1815; J2270; J2405; J3010; J7030; J7042; P9016

== ENCOUNTER 2017-09-06 23:22 | Emergency (ER) | END 2017-09-07 04:22 | disposition home or self-care (01) ==